=== PATIENT | male | born 1965 | race Caucasian/White ===

== ENCOUNTER → 2019-05-16 | Outpatient (CLI) | payer OTHER | LOC: CAT 07:10 | DX: Z13.6 Encounter for screening for cardiovascular disorders (principal); E78.00 Pure hypercholesterolemia, unspecified; I25.10 Atherosclerotic heart disease of native coronary artery without angina pectoris ==

== ENCOUNTER → 2019-05-16 | Outpatient (CLI) | payer OTHER | LOC: ULTRA 05-09 15:23 | DX: N28.1 Cyst of kidney, acquired (principal); N28.89 Other specified disorders of kidney and ureter; N50.89 Other specified disorders of the male genital organs; N43.3 Hydrocele, unspecified ==

== ENCOUNTER → 2019-12-23 | Outpatient (CLI) | payer OTHER | LOC: LAB 08:11 | PROVIDERS: ATTEND Family Medicine | DX: R05 Cough (principal); R06.02 Shortness of breath; Z20.828 Contact with and (suspected) exposure to other viral communicable diseases ==